=== PATIENT | male | born 1955 | race Caucasian/White ===

== ENCOUNTER → 2017-11-16 09:55 | Outpatient (CLI) | payer BC ==
--- NOTE | ~2017-11-16 | EC ---
PATIENT:NI LLANOS DATE OF SERVICE: 11/16/17 SEX: M MEDICAL RECORD: [id number] DATE OF : 53 LOCATION:D[facility] AGE OF PATIENT: 62 ADMISSION DATE: 11/16/17 REFERRING PHYSICIAN: INTERPRETING PHYSICIAN: LATONIA CASTILLO MD ECHOCARDIOGRAM REPORT ECHO CHARGES 4 ECHO COMPLETE Date: 11/16 CLINICAL DIAGNOSIS: ABNORMAL EKG ECHOCARDIOGRAPHIC MEASUREMENTS (adult normal given) AC root (d.<3.7cm) 3.4 cm LV Septum d (<1.2 cm> 1.4 cm Valve Excursion 1.7 cm LV Septum (systole) 1.4 cm Left Atria (s.<4.0cm> 3.3 cm LVPW d(<1.2cm) 1.3 cm RV (d.<2.3cm) 4.1 cm LVPW (sytole) 1.4 cm LV diastole(<5.6CM) 5.0 cm MV E-F(>70mm/sec) cm LV systole 4.3 cm LVOT Diameter 2.3 cm MV exc.(>10mm) cm Est.ejection fraction (50-75%) % DOPPLER: LVIT cm/sec A 72 cm/sec E 63 cm/sec LA cm/sec RVSP 27.1 mmHg LVOT 128 cm/sec AOP1/2T m/s Asc. Ao 155 cm/sec RVOT 66 cm/sec RA cm/sec PA 96 cm/sec AV Gradient Peak 9.6 mmHg AV Mean 1.0 mmHg AV Area 3.9 cm MV Gradient Peak 2.3 mmHg MV Mean 1.2 mmHg MV Area cm COMMENTS: Hide And Skin Colerer: Adelia GUEVARAKENNA BETZY Occupational Therapist Rehab Manager: Terence Castillo TAPE# PACS Pericardial Effusion N DATE OF SERVICE: Transthoracic Echocardiogram FINDINGS: 1. The left ventricle was difficult to visualize. Inferior posterior border is not well visualized; however, that being said, there appears to be near normal function. Cannot comment specifically on regional wall abnormalities, but the ejection fraction appears to be in the 50% range. 2. Aortic valve is normal. ECHOCARDIOGRAM REPORT [id number] NI LLANOS 3. The left atrium is normal. 4. The mitral valve is normal. 5. The tricuspid valve is normal. 6. The right ventricle appears to be mildly dilated, but it is in off axis view of the right ventricle, but the function of the right ventricle appears to be normal. The RVSP appears to be normal. 7. Trace pulmonic valve insufficiency. CONCLUSION: The patient has overall normal echocardiogram; however, the inflow characteristics suggest diastolic dysfunction and the size of the septum suggest left ventricular hypertrophy. TRANSINT:[id number] Voice Confirmation ID: [id number] DOCUMENT ID: [id number] LATONIA CASTILLO MD at 1144 CC: [id number] DICTATION DATE: 11/17/17 1652 REVIEW SPECIALIST: 11/17/17 2339 DEP CLI 11/16/17 [address] [place] [address]
[~2017-11-16 09:55] MED LIST: BAYER CHEWABLE81 MG PO; CLARITIN 10 MG10 MG PO; NORVASC5 MG PO; TOPROL XL100 MG PO
[2017-12-21 07:58] VITALS: BMI 27.0
== END | disposition home or self-care (01) ==
LOC: D.ECHO 09:55
DX: R94.31 Abnormal electrocardiogram [ECG] [EKG] (principal); I10 Essential (primary) hypertension

== ENCOUNTER 2017-12-21 07:01 | Outpatient (CLI) | payer BC ==
[~2017-12-21] VITALS: Ht 188 cm; Wt 95.5 kg
--- NOTE | ~2017-12-21 | OP ---
PATIENT NAME: NI LLANOS MEDICAL RECORD: [id number] :53 LOCATION:D.[facility] ADMISSION DATE: SURGEON: LUIS F CASTILLO MD DATE OF OPERATION: 12/21/2017 PROCEDURE: Left heart cath, LV gram, coronary angiogram. ENGINE ROOM OPERATOR: Luis F Castillo MD PROCEDURE IN DETAIL: The patient had the right wrist sterilely prepped and draped. The patient had a 6-Latvian sheath placed in the right radial artery using a modified Seldinger technique. The patient then had serial catheterization into selectively the left ventricular cavity, right coronary artery, and the left coronary artery. FINDINGS: 1. Right coronary artery is a nondominant vessel, normal. No stenoses seen. 2. Left main is normal. 3. LAD has mild plaquing. 4. The circumflex is a large, dominant vessel and normal. HEMODYNAMICS: Left ventricular ejection fraction 65%. End-diastolic pressure is normal. There is no significant mitral regurgitation. No gradient across the aortic valve. IMPRESSION: [id number] coronary artery disease with preserved LV systolic function. RECOMMENDATIONS: Medical management. TRANSINT:[id number] Voice Confirmation ID: [id number] DOCUMENT ID: [id number] LUIS F CASTILLO MD at 0738 CC: [id number] DICTATION DATE: 12/21/17918 MODEL TECHNICIAN: 12/21/1734 DEP CLI 12/21/17 [address] [place] [address]
--- NOTE | ~2017-12-21 | HEMODYNAMI ---
PATIENT:NI LLANOS MEDICAL RECORD: [id number] : 53 LOCATION:D.[facility] ADMISSION DATE: 12/21/17 Generatedon:12/21/20179:19 Patient name: NI LLANOS Patient #: [id number] SSN: : 1955 Date of study: 12/21/2017 Page: Of Hemodynamic Procedure Report Patient Data Patient Demographics Procedure consent was obtained First Name: NI Gender: Male Last Name: VIET : 1955 Middle Initial: D Age: 62 year(s) Patient #: [id number] Race: Unknown Additional ID: [id number] Contact details Address: [facility] [address] State: [place] City: [place] Zip code: [address] Past Medical History Allergies Allergen Reaction Date Comments Reported Other allergy 12/21/2017 Gluten Admission Admission Data Admission Date: 12/21/2017 Admission Time: 7:01 Procedure Procedure Types Cath Procedure Diagnostic Procedure LHC LHC w/Coronaries Procedure Description Procedure Date Procedure Date: 12/21/2017 Procedure Start Time: 9:09 Procedure End Time: 9:19 Procedure Staff Name Function Luis F Lee MD Performing Physician Renetta Saucedo RT Monitor Rich Palmer RN Nurse Maria Guadalupe Lira RT Scrub Procedure Data Cath Procedure Fluoroscopy Diagnostic fluoroscopy Total fluoroscopy Time: 2.3 time: 2.3 min min Diagnostic fluoroscopy Total fluoroscopy dose: 321 dose: 321 mGy mGy Contrast Material Contrast Material Type Amount (ml) Isovue 300 35 Entry Location Entry Primary Successful Side Size Upsize Upsize Entry Closure Mills ccessful Closure Location (Fr) 1 (Fr) 2 (Fr) Remarks Device Remarks Radial Right 6 Fr Mechanical artery Short Compression Estimated blood loss: 5 ml Diagnostic catheters Device Type Used For End Catheter Placement DIAGNOSTIC Omar 110cm LV Angiography 5Fr catheter ([id number]) DIAGNOSTIC Omar 110cm Right Coronary 5Fr catheter ([id number]) Angiography DIAGNOSTIC Omar 110cm Left Coronary 5Fr catheter ([id number]) Angiography Procedure Complications No complications Procedure Medications Medication Administration Route Dosage Oxygen etCO2 Nasal cannula 2 l/min Lidocaine 2% added to field 20 Heparin Flush Bag added to field 2 bags (1000units/500ml NS) 0.9% NaCl I.V. 100 ml/hr Versed I.V. 2 mg Fentanyl I.V. 25 mcg Radial Cocktail I.A. 1 syringe (Verapomil 2mg/Nitro 400mcg/Heparin 1500units) Hemodynamics Rest Heart Rate: 58 (bpm) Pressure Samples Time Site Value (mmHg) Purpose Heart Use Rate(bpm) 9:12 LV 128/14,22 EDP 91 Gradients Valve Time Site Site Mean SEP/DFP Peak To Heart Use 1 2 (mmHg) (sec/min) Peak Rate (mmHg) (bpm) Aortic 9:13 LV AO 111 Snapshots Pre Cath Intra NCS Post Cath Vital Signs Time Heart Resp SPO2 etCO2 NIBP (mmHg) Rhythm Pain Sedation Rate (ipm) (%) (mmHg) Status Level (bpm) 8:58:19 59 22 96 0 146/90(120) NSR 0 (11) 10(A) , No pain 9:03:02 59 21 98 31.6 153/95(122) NSR 0 (11) 10(A) , No pain 9:07:47 58 15 98 0 142/89(118) NSR 0 (11) 9(A) , No pain 9:12:31 65 15 97 24.1 127/73(87) NSR 0 (11) 9(A) , No pain 9:17:12 56 15 96 28.6 134/72(96) NSR 0 (11) 10(A) , No pain Medications Time Medication Route Dose Verified Delivered Reason Notes Effectiveness by by 8:56:31 Oxygen etCO2 2 l/min Luis F Buffie used for Nasal Rosa Palmer RN procedure cannula MD 8:56:40 Lidocaine 2% added 20ml Luis F Luis F for local to vial Rosa Lee MD anesthetic field 8:56:47 Heparin Flush added 2 bags Luis F Luis F used for Bag to Rosa Lee MD procedure (1000units/500ml field CONTRERAS NS) 8:56:55 0.9% NaCl I.V. 100 Luis F Buffie Per ml/hr Rosa Palmer RN physician 9:06:31 Versed I.V. 2 mg Luis F Buffie for sedation Rosa Palmer RN, MD 9:08:41 Fentanyl I.V. 25 mcg Luis F Villanueva for sedation Rosa Palmer RN, MD 9:11:51 Radial Cocktail I.A. 1 Luis F Villanueva for (Verapomil syringe Rosa Palmer RN vasodilation 2mg/Nitro 400mcg/Heparin 1500units) Procedure Log Time Note 8:49:17 Rich Palmer RN sent for patient. Start room use. 8:53:29 Time tracking: Regular hours (M-F 7:00 - 5:00) 8:53:33 Plan of Care:Hemodynamics will remain stable., Cardiac rhythm will remain stable., Comfort level will be maintained., Respiratory function will remain adequate., Patient/ family verbilizes understanding of procedure., Procedure tolerated without complication., Recovers from procedure without complications.. 8:53:38 Patient received from Pre/Post Procedure Room to CCL 1 Alert and oriented. Tansferred to table in Supine position. 8:53:40 Warm blankets applied, and patty hugger turned on for patient comfort. 8:53:40 Correct patient and procedure confirmed by team. 8:53:42 Signed procedure consent form obtained from patient. 8:53:43 ECG and BP/O2 sat monitors applied to patient. 8:53:44 Full Disclosure recording started 8:56:31 Oxygen 2 l/min etCO2 Nasal cannula was administered by Rich Palmer RN; used for procedure; 8:56:40 Lidocaine 2% 20ml vial added to field was administered by Luis F Lee MD; for local anesthetic; 8:56:47 Heparin Flush Bag (1000units/500ml NS) 2 bags added to field was administered by Luis F Lee MD; used for procedure; 8:56:55 0.9% NaCl 100 ml/hr I.V. was administered by Rich Palmer RN; Per physician; 8:57:01 Vital chart was started 9:04:12 Rhythm: sinus rhythm 9:04:22 H&P Date Dictated: 12/08/2017 Within 30 days and on chart., H&P Addendum completed by physician on day of procedure. (MUST COMPLETE FOR ALL OUTPATIENTS). 9:04:23 Pre-procedure instructions explained to patient. 9:04:24 Pre-op teaching completed and patient verbalized understanding. 9:04:26 Family in waiting room. 9:04:29 Patient NPO since Midnight. 9:04:56 Patient allergic to Other allergyGluten 9:04:58 Is the patient allergic to Iodine/contrast media? No. 9:05:00 Is patient on blood thinner?Yes 9:05:03 ACC The patient was administered the following blood thiners within the last 24 hours: ACCPlavix 9:05:05 Patient diabetic? No. 9:05:14 Previous problem with sedation/anesthesia? No ? 9:05:14 Snore? Yes 9:05:16 Sleep apnea? No 9:05:19 Deviated septum? No 9:05:20 Opens mouth fully? Yes 9:05:21 Sticks out tongue? Yes 9:05:23 Airway obstruction? No ? 9:05:24 Dentures? No ? 9:05:27 Pre procedure: right dorsailis pedis pulse 2+ Normal; easily identifiable; not easily obliterated 9:05:29 Modified Yogi's test Ulnar < 7 seconds 9:05:30 Patient pain scale 0/10 ?. 9:05:36 IV patent on arrival in left hand with 0.9% NaCl at [facility]. 9:05:48 Lab results completed and on chart. 9:05:51 Right Radial & Right Groin area was prepped with chlora-prep and draped in sterile fashion 9:05:52 Alarms reviewed by R. N. 9:05:53 Sharps counted by scrub and verified by R.N. 9:05:54 Final Timeout: patient, procedure, and site verified with staff and physician. All members of the team are in agreement. 9:05:56 Right Radial site verified by team. 9:05:58 Physical assessment completed. ASA score P 2 - A patient with mild systemic disease as per Luis F Lee MD. 9:06:01 Sedation plan: IV Moderate Sedation Medication:Versed, Fentanyl 9:06:09 Use device set Radial Dx or PCI 9:06:10 ACIST Syringe (34426) opened to sterile field. 9:06:10 Medline Cath Pack ([id number]) opened to sterile field. 9:06:11 Bag Decanter (2002S) opened to sterile field. 9:06:11 DIAGNOSTIC WIRE .035 260cm J wire (425322) opened to sterile field. 9:06:11 ACIST Hand Control (74294) opened to sterile field. 9:06:12 ACIST Manifold (17298) opened to sterile field. 9:06:14 SHEATH 6Fr Prelude Radial ([id number]) opened to sterile field. 9:06:17 MBrace Wrist Support ([id number]) opened to sterile field. 9:06:31 Versed 2 mg I.V. was administered by Rich Palmer RN; for sedation; 9:08:41 Fentanyl 25 mcg I.V. was administered by Rich Palmer RN; for sedation; 9::46 Zero performed for pressure channel P1 9:09:51 Procedure started. 9:09:54 Local anesthetic to right femoral artery with Lidocaine 2% by Luis F Lee MD.INITIAL ACCESS ONLY 9:10:27 A 6 Fr Short sheath was inserted into the Right Radial artery 9:11:32 Baseline sample Acquired. 9:11:51 Radial Cocktail (Verapomil 2mg/Nitro 400mcg/Heparin 1500units) 1 syringe I.A. was administered by Rich Palmer RN; for vasodilation; 9:12:04 A DIAGNOSTIC Omar 110cm 5Fr catheter ([id number]) was advanced over the wire and used for LV Angiography. 9:13:05 LV gram done using LUGO 9:13:06 LV hemodynamics recorded. 9:13:09 Injector settings: Ml/sec: 12, Volume: 8, 9:13:23 Catheter removed. 9:14:22 A DIAGNOSTIC Omar 110cm 5Fr catheter (295604) was advanced over the wire and used for Right Coronary Angiography. 9:14:34 A DIAGNOSTIC Omar 110cm 5Fr catheter (896848) was advanced over the wire and used for Left Coronary Angiography. 9:15:43 Catheter removed. 9:15:51 Sheath removed intact; hemostasis achieved with Mechanical Compression to the Right Radial artery. 9:15:53 Procedure ended.(Physican Out) 9:15:56 TR BAND Standard ([id number]) opened to sterile field. 9:16:22 Fluoroscopy time 02.30 minutes. 9:16:26 Fluoroscopy dose: 321 mGy 9:16:26 Flurop Dose total: 321 9:16:40 Contrast amount:Isovue 300 35ml. 9:16:46 Sharps counted by scrub and verified by R.N. 9:16:48 TR band inflated with 12cc of air. 9:16:50 Insertion/operative site no bleeding no hematoma. 9:16:56 Post right radial artery:stable, clean and dry 9:16:57 Post Procedure Pulses reassessed and unchanged 9:17:01 Post-procedure physical assessment completed. ASA score P 2 - A patient with mild systemic disease as per Luis F Lee MD. 9:17:04 Post procedure rhythm: unchanged. 9:17:06 Estimated blood loss: 5 ml 9:17:08 Post procedure instruction explained to patient.Patient verbalizes understanding. 9:17:08 Patient needs reinforcement of post procedure teaching. 9:17:21 Procedure Complication : No complications 9:17:22 See physician's report for complete and final results. 9:17:42 Procedure and supply charges have been captured, reviewed, submitted and are correct. 9:19:21 Vital chart was stopped 9:19:23 Report given to Pre/Post Procedure Room. 9:19:25 Patient transfered to Pre/Post Procedure Room with Stretcher. 9:19:35 Procedure ended. 9:19:35 Full Disclosure recording stopped 9:19:38 End room use (Document Last) Device Usage Item Name Manufacture Quantity Catalog Number Hospital Part Current M inimal Lot# / Charge Number Stock Stock Serial# Code ACIST Syringe Acist 1 81893 [id number] [id number] [id number] 2 0 (31340) [employer] Medline Cath Cardinal 1 [id number] 28415 586645 5 Pack Health ([id number]) Bag Decanter Microtek 1 893518 62840 615285 5 () Medical Inc. DIAGNOSTIC WIRE St [place] 1 991862 454227 576450 140881 3 0 .035 260cm J wire (604414) ACIST Hand Acist 1 82912 348616 095223 045300 5 Control (66803) [employer] ACIST Manifold Acist 1 64328 833320 806437 018649 5 (32891) [employer] SHEATH 6Fr Merit 1 [id number] 400632 419754 662109 5 Prelude Radial Medical ([id number]) MBrace Wrist Advanced 1 140-0250-00 602373 05611 393055 5 Support Vascular ([id number]) Dynamics DIAGNOSTIC Terumo 1 41-1409 057859 720268 535103 5 Omar 110cm 5Fr catheter (008519) TR BAND Terumo 1 [id number] 888899 568308 376976 4 0 Standard ([id number]) Signature Audit Coral Stage Time Signature Unsigned Intra-Procedure 12/21/2017 Renetta 9:19:49 AM Counts RT(R) Signatures Monitor : Renetta Signature : Counts RT Date : Time : [id number] [place] [address]
[2017-12-21] MEDS ORDERED: TOPROL XL100 MG PO (07:35)
[2017-12-21] MEDS ORDERED: BAYER CHEWABLE81 MG PO (07:35)
[2017-12-21] MEDS ORDERED: NORVASC5 MG PO (07:35)
[2017-12-21] MEDS ORDERED: CLARITIN 10 MG10 MG PO (07:36)
[2017-12-21 07:58] VITALS: BP 139/79; Ht 188 cm; Wt 95.5 kg
[2017-12-21 08:15] LABS: CALCIUM 8.3 mg/dL (8.5-10.1); CARBON DIOXIDE 25.2 mmol/L (21.0-32.0); CREATININE - SERUM 1.2 mg/dL (0.6-1.3); LDL-HDL RATIO 2.7 ratio (1.5-3.5); POTASSIUM - SERUM 4.2 mmol/L (3.5-5.1)
[2017-12-21 08:23] LABS: BASOPHILS 0.2 % (0-2); EOSINOPHILS 6.3 % (0-7); HEMATOCRIT 41.8 % (42.0-54.0); HEMOGLOBIN 14.1 g/dL (13.5-17.5); IMMATURE GRANULOCYTES 0.5 % (0-5); LYMPHOCYTES 36.7 % (15-50); MCH 32.6 pg (26.0-34.0); MCHC 33.7 g/dL (31.0-37.0); MCV 96.8 fL (80.0-100.0); MEAN PLATELET VOLUME 9.6 fL (7.4-10.4); MONOCYTES 8.8 % (2-11); NEUTROPHILS 47.5 % (40-80); PLATELET COUNT 252 10x3/uL (130-400); RBC 4.32 10x6/uL (4.20-6.10); RDW 13.1 % (11.5-14.5); WBC 4.3 10x3/uL (4.8-10.8)
== END 2017-12-21 11:30 ==
LOC: D.CATH 07:01
PROVIDERS: Internal Medicine Cardiovascular Disease
DX: I25.119 Atherosclerotic heart disease of native coronary artery with unspecified angina pectoris (principal); Z01.812 Encounter for preprocedural laboratory examination